=== PATIENT | female | born 1970 | race Caucasian/White ===

== ENCOUNTER 2021-01-20 06:53 | Day surgery (SDC) | payer OTHER ==
[2021-01-16 12:25] VITALS: BMI 24.4
[~2021-01-20 06:53] MED LIST: BUPIVACAINE HCL/PF 0.25% (2.5MG/ML) 10 ML VIAL IJ ONE
[2021-01-20] MEDS ORDERED: MIDAZOLAM HCL 2 MG/2 ML SINGLE DOSE VIAL ONE (08:40)
[2021-01-20] MEDS ORDERED: BUPIVACAINE HCL/PF 2.5 MG/ML - 30 ML VIAL IJ ONE (08:43)
[2021-01-20] MEDS ORDERED: PROPOFOL 20 ML ONE (09:53)
[2021-01-20] MEDS ORDERED: HYDROmorphone HCL/PF 1 MG/ML VIAL ONE (10:02)
[2021-01-20] MEDS ORDERED: BUPIVACAINE HCL/PF 0.25% (2.5MG/ML) 10 ML VIAL IJ ONE (10:09)
[2021-01-20] MEDS ORDERED: PROMETHAZINE HCL 25 MG/1 ML VIAL IVPUSH PRN (10:19)
[2021-01-20] MEDS ORDERED: LACTATED RINGERS SOLUTION 1,000 ML IV SCH (10:30)
[2021-01-20] MEDS ORDERED: oxyCODONE HCL 5 MG TABLET PO PRN ×2 (10:47)
[2021-01-20 11:20] VITALS: TEMP 97.2
[2021-01-20 11:39] VITALS: BP 116/66; PULSE 58
== END 2021-01-20 11:58 | disposition home or self-care (01) ==
LOC: FASU 06:53
PROVIDERS: ATTEND Orthopaedic Surgery
PROC: 0SBC4ZZ Excision of Right Knee Joint, Percutaneous Endoscopic Approach (ICD-10-PCS; 2021-01-20)
PROC: 0SBC4ZZ Excision of Right Knee Joint, Percutaneous Endoscopic Approach (ICD-10-PCS; principal; 2021-01-20 09:51)
DX: S83.241A Other tear of medial meniscus, current injury, right knee, initial encounter (principal); S83.281A Other tear of lateral meniscus, current injury, right knee, initial encounter; S83.8X1A Sprain of other specified parts of right knee, initial encounter; M65.861 Other synovitis and tenosynovitis, right lower leg; X58.XXXA Exposure to other specified factors, initial encounter; Y93.9 Activity, unspecified; Y92.9 Unspecified place or not applicable
CPT/HCPCS: 81025; 88304-TC; 94760